=== PATIENT | female | born 1955 | race Caucasian/White ===

== ENCOUNTER → 2020-02-11 12:13 | Outpatient (BNVA) | payer BC, SELFPAY | PROVIDERS: Family Provider Family Medicine; Visit Provider Specialist | DX: G35 Multiple sclerosis (principal) | CPT/HCPCS: 99213 ==

== ENCOUNTER → 2021-04-08 13:32 | Outpatient (BNVA) | payer BC, SELFPAY | PROVIDERS: Family Provider Family Medicine; PCP Family Medicine; Visit Provider Specialist | DX: G35 Multiple sclerosis (principal) | CPT/HCPCS: 99213; 99214 ==

== ENCOUNTER 2023-06-20 13:41 | Outpatient (CLI) | payer BC, SELFPAY ==
--- NOTE | 2023-06-20 13:45 | MR_ITS ---
WS: [id number] MRI LUMBAR SPINE NONCONTRAST TECHNIQUE: Sagittal T1, T2 and STIR imaging. Axial T1 and T2 imaging. CLINICAL INFORMATION: R25.2 - Cramp and spasm COMPARISON: MRI 2019 FINDINGS: Mild lumbar curve. No acute compression. Slight retrolisthesis L1 on L2 and L2 on L3 progressed magaly red to previous. Disc space narrowing at these levels has progressed. Mild compression of the superio r endplate of T10 is new from previous but has a chronic appearance. L1-L2: Slight retrolisthesis. Mild disc bulge with narrowing of the LEFT subarticular recess. Moderat e facet arthropathy. Mild LEFT foraminal narrowing. L2-L3: Slight retrolisthesis with mild disc bulging. Narrowing of the subarticular recess bilaterally . Impingement traversing L3 nerve roots. Mild central canal stenosis progressed compared to previous. Moderate bilateral foraminal narrowing with moderate facet arthropathy. L3-L4: Mild disc bulge with mild central canal stenosis progressed compared to previous. Impingement traversing L4 nerve roots bilaterally. Moderate facet arthropathy. Mild bilateral foraminal narrowing RIGHT greater than LEFT. L4-L5: Disc desiccation with slight effacement of the ventral thecal sac. Moderate facet arthropathy. Mild to moderate bilateral foraminal narrowing. L5-S1: L5 is sacralized. Spinal canal and foramen are patent. Incidental Tarlov cyst in the sacrum. Visualized pelvic bony structures: Normal. Paravertebral soft tissues: Normal. IMPRESSION: 1. Disc base narrowing and disc bulging at L1-2 and L2-3 has progressed compared to previous. Retrol isthesis has increased. 2. Progressed central mild canal stenosis L2-3 with impingement on the traversing L3 nerve roots caroline aterally. 3. Mild central canal stenosis L3-4 is similar in appearance. 4. Progressed moderate LEFT L1-2 and bilateral L2-3 foraminal narrowing. 5. Mild RIGHT L3-4 and mild to moderate bilateral L4-5 foraminal narrowing similar to previous. 6. Moderate facet arthropathy worse at L2-L3 L3-L4 and L4-L5.
[2023-06-20] MEDS: gadobenate dimeglumine 20 mL vial IV (14:24)
--- NOTE | 2023-06-20 14:30 | MR_ITS ---
WS: [id number] MRI THORACIC SPINE WITH CONTRAST TECHNIQUE: Sagittal T1, T2 and STIR imaging. Axial T2 imaging. Post gadolinium imaging was obtained. CLINICAL INFORMATION: M48.061 - Spinal stenosis, lumbar region without neurogen... COMPARISON: MRI 2019 FINDINGS: Some images degraded by motion artifact. A few chronic appearing demyelinating plaques in t he thoracic cord best seen on the STIR imaging likely present in 2019 although comparison is difficul t due to motion artifact on the prior examination. No significant cord atrophy. No abnormal gadoliniu m enhancement to indicate active disease. Chronic demyelinating plaques most prominent at T3 similar to previous. Normal caliber thoracic aorta. Adrenal glands are normal. Mild thoracic curve. Mild thoracic kyphosis. Endplate Schmorl's nodes in the mid and lower thoracic s pine. No acute compression fractures. No high-grade central canal stenosis. Mild chronic compression superior endplate T10 is new since the thoracic spine 2019 but has a chronic appearance IMPRESSION: 1. A few chronic demyelinating plaques in the thoracic cord most prominent at T3. 2. No enhancing lesions to indicate active disease. 3. No significant cord atrophy. 4. Mild spondylitic changes thoracic spine with thoracic curve convex LEFT and thoracic kyphosis.
== END 2023-06-20 13:42 | disposition home or self-care (01) ==
LOC: RAD 13:41
PROVIDERS: Family Provider Family Medicine; PCP Family Medicine; Visit Provider Specialist
DX: M48.061 Spinal stenosis, lumbar region without neurogenic claudication (principal); G35 Multiple sclerosis; R25.2 Cramp and spasm; M47.814 Spondylosis without myelopathy or radiculopathy, thoracic region; M40.204 Unspecified kyphosis, thoracic region
CPT/HCPCS: 72148; 72157; A9577

== ENCOUNTER → 2025-08-21 11:31 | Outpatient (BNVA) | payer MEDICARE, OTHER, SELFPAY | PROVIDERS: Family Provider Family Medicine; PCP Family Medicine; Visit Provider Specialist | DX: R25.2 Cramp and spasm (principal) | CPT/HCPCS: 64642; J0585; J9999 ==